=== PATIENT | male | born 1945 | race African-American/Black ===

== ENCOUNTER 2017-07-19 10:57 | Emergency (ER) | payer BC, OTHER ==
[~2017-07-19] VITALS: Ht 182.9 cm; Wt 100.2 kg
[~2017-07-19 10:57] MED LIST: AMITRIPTYLINE H25 M2 PO; CLOBETASOL EMOL15 GM TOP; HYDROCODON-ACE1 EAC7 PO; LIDEX60 G1 TOP; LIPITOR80 MG PO; LISINOPRIL-HCT1 EAC2 PO; NEURONTIN800 MG PO; TOPROL XL25 MG PO; VITAMIN D 5050000 I1 PO; VITAMIN D1000 UNI1 PO; XARELTO15 MG PO; ZESTORETIC 20-1 EAC3 PO
[2017-07-19 12:30] LABS: ABSOLUTE NEUTROPHILS 4.2 thou/uL (1.4-8.2); BASOPHILS 0.5 % (0.0-2.0); EOSINOPHILS 0.9 % (0.0-3.0); HEMATOCRIT 41.6 % (42.0-52.0); HEMOGLOBIN 14.1 gm/dL (14.0-18.0); LYMPHOCYTES 27.1 % (24.0-44.0); MCH 28.1 pg (26.0-34.0); MCHC 33.8 g/dL (28.0-37.0); MCV 83.1 fL (80.0-100.0); MONOCYTES 8.8 % (1.0-8.0); PLATELET COUNT 199 thou/uL (150-400); POLYS 62.7 % (36.0-66.0); RDW 14.4 % (10.5-14.5); WBC 6.7 thou/uL (4.0-11.0)
[2017-07-19 12:42] LABS: CALCIUM 9.7 mg/dL (8.5-10.1); CREATININE 0.8 mg/dL (0.7-1.3); POTASSIUM 4.4 mmol/L (3.5-5.1)
[2017-07-19 12:43] LABS: MANUAL DIFF NO
[2017-07-19 12:50] LABS: ALBUMIN 3.8 g/dL (3.4-5.0); TOTAL BILIRUBIN 0.5 mg/dL (<0.1-1.0); TOTAL PROTEIN 8.1 g/dL (6.4-8.2)
[2017-07-19] MEDS ORDERED: MIRALAX17 GM PO (14:30)
[2017-07-19 14:37] LABS: URINE BILIRUBIN NEGATIVE (Negative); URINE BLOOD NEGATIVE (Negative); URINE COLOR YELLOW; URINE GLUCOSE-RANDOM* NEGATIVE (Negative); URINE KETONES NEGATIVE (Negative); URINE NITRITE NEGATIVE (Negative); URINE PROTEIN (DIPSTICK) NEGATIVE (Negative); URINE SPECIFIC GRAVITY <= 1.005 (1.003-1.035)
[2017-07-19] MEDS ORDERED: TRAMADOL 50 MG50 MG PO (14:53)
[2017-07-19 14:59] VITALS: BP 142/84
== END 2017-07-19 15:27 | disposition home or self-care (01) ==
LOC: ER 10:57
PROVIDERS: Nurse Practitioner Family
DX: K59.00 Constipation, unspecified (principal); I48.91 Unspecified atrial fibrillation; I10 Essential (primary) hypertension; Z87.891 Personal history of nicotine dependence

== ENCOUNTER 2019-03-27 05:29 | Inpatient (IN) | payer BC, OTHER ==
[2019-03-20 11:25] LABS: INR 1.2; PROTIME 12.7 Seconds (9.3-11.4)
[~2019-03-27] VITALS: Ht 177.8 cm; Wt 113.9 kg
--- NOTE | ~2019-03-27 | O ---
[facility] [place] [address] OPERATIVE REPORT Name: RAE LOZANO JR Room #: 150-1 ADM IN M.R.#: [id number] Admission: 03/27/19 ������������������ Attend Phys: Nathen Pedro MD Discharge: ������������������ Date of : 45 Report #: [id number] THIS REPORT FOR: //name// CC: REUBEN RAMOS Physician staff Nathen Pedro DATE OF SERVICE: 03/27/2019 PREOPERATIVE DIAGNOSIS: Right hip stage 4 avascular necrosis. POSTOPERATIVE DIAGNOSIS: Right hip stage 4 avascular necrosis. PROCEDURE: Right total hip arthroplasty. SURGEON: Nathen Pedro MD BREWMASTER: Ivelisse Nielson PA-C. INDICATIONS FOR BREWMASTER: Throughout the case, extensive retraction and manipulation of the hip including dislocation and reduction was required. This was afforded to me by my certified surgical first assistant. ANESTHESIA: General endotracheal. IMPLANTS: [employer] size 12 high offset Synergy press fit stem, a size 58 R3 acetabular cup with one acetabular screw and a size 48+8 cobalt chrome head. ESTIMATED BLOOD LOSS: 150 mL. COMPLICATIONS: None. SPECIMENS: None. CONDITION UPON LEAVING THE OPERATING ROOM: Stable. INDICATIONS FOR PROCEDURE: The patient is a 73-year-old gentleman with severe right hip stage 4 avascular necrosis. He had failed conservative treatment for this and after discussion with him, he elected for right total hip arthroplasty. DESCRIPTION OF PROCEDURE: Risks, benefits, alternatives, complications were discussed in detail with the patient including but not limited to risk of anesthesia, risk of damage to nerves, arteries and blood vessels, risk for infection and bleeding, risk for leg length discrepancy, instability and need for reoperation. Informed consent was obtained from the patient. The right hip [facility] [address] [place] [address] OPERATIVE REPORT Name: RAE LOZANO Room #: 150-1 ADM IN M.R.#: [id number] Admission: 03/27/19 ������������������ Attend Phys: Nathen Pedro MD Discharge: ������������������ Date of : 45 Report #: [id number] was appropriately marked in the preoperative holding area. IV Ancef was given for preoperative antibiotics. He was brought to the operating room and placed in supine position on operating room table. General endotracheal anesthesia was induced without complication. He was then placed in the left lateral decubitus position with the right hip uppermost. Right hip and lower extremity were prepped and draped in normal sterile fashion. Timeout was performed properly identifying the patient and procedure as well as the instrumentation and implants. All in the operating room were in agreement. Standard posterior approach to the hip was made with a 10 blade through the skin. Dissection was taken down to the fascia with Bovie cautery. Sánchez elevator was used to clean the fascia. A fresh 10 blade was used to make a fascial incision. This was taken proximally and distally with curved Ramos scissor. Charnley retractor was placed. The trochanteric bursa was taken down with Bovie cautery. Piriformis tendon was identified, tagged and taken down with Bovie cautery. Short external rotators were also taken down with Bovie cautery. Capsulotomy was made and capsule ends were tagged for later repair. The hip was dislocated and there was severe stage 4 avascular necrosis of the femoral head with complete collapse of the entire femoral head. Femoral neck cut was made 1 cm proximal to lesser trochanter based on preoperative templating and the femoral head was removed. The deep acetabular retractors were placed. The labrum was removed sharply. see the anterior tightness of the capsule and the anterior capsule was released off the acetabulum with the Bovie cautery. After adequate exposure to the acetabulum, this was reamed to a size 58, at which point, there was excellent bleeding cancellous bone. A size 57 trial cup was placed, found to have a good fit. A final size 58 R3 acetabular cup was placed and seated. One acetabular screw was placed for backup fixation. Polyethylene liner for a 40 head was placed. After this, attention was turned to the femur. This was reamed and broached up to a size 12, at which point, the size 12 broach was stable. This was trialed with a high offset neck and a 40+0 head. Hip was reduced, taken through range of motion, found to be stable, found to be short on the right compared to left and it was felt we could makeup for this with the final implant. After this, the hip was dislocated and the broach was removed. A final size 12 high offset Synergy press fit stem was placed and seated. This was then trialed with a +4 and a +8 head. The +8 head had better leg length and stability. A final size 40+8 cobalt chrome head was placed. Hip was reduced, taken through range of motion, found to be stable, found to have equal leg lengths. After this, the hip was thoroughly irrigated with normal saline. A gram of vancomycin was placed deep in the joint. Capsule was unable to be repaired secondary to significant shortening of the capsule secondary to his contracture. The piriformis was repaired with 0 FiberWire. Fascia was closed with 0 Vicryl, skin was closed with 2-0 Vicryl and 3-0 Monocryl. [facility] [address] [place] [address] OPERATIVE REPORT Name: RAE LOZANO Room #: 150-1 [facility] IN .R.#: [id number] Admission: 03/27/19 ������������������ Attend Phys: Nathen Pedro MD Discharge: ������������������ Date of : 45 Report #: [id number] a LEONARDA dressing was applied. The patient tolerated this procedure well and went to recovery room under care of anesthesia postoperatively. ��������������������������������������������� ���������������������������������������� By: ��������������������������������������������� [id number] Nathen Pedro MD /nt
[~2019-03-27 05:29] MED LIST changes: +MIRALAX17 GM PO; +TRAMADOL 50 MG50 MG PO
[2019-03-27 13:08] VITALS: BP 135/84
[2019-03-27 18:30] VITALS: BP 142/87
--- NOTE | 2019-03-27 18:51 | NUR ---
ASSUMED CARE AT 0700, SHIFT ASSESSMENT DONE, MEDS GIVEN, HR AT 120. PATIENT INDICATED PAST HISTORYT OF AFIB WITH ABLATION. REPROTED PAIN AT 01/15. LEONARDA DRESSING TO RIGHT KNEE C/D/I. WILL CONTINUE TO ASSESS AND ASSIST WITH ADLs NEEDED
[2019-03-27 22:27] VITALS: BP 105/66
[2019-03-28 01:29] VITALS: BP 119/75
[2019-03-28 03:50] VITALS: BP 110/71
--- NOTE | 2019-03-28 04:00 | NUR ---
Assumed pt care at 1900,A/OX4. C/o pain to Right hip 04/17,medicated with Percocet with relief reported. Pt has a low grade temp 99.8, medicated with Tylenol with some relief noted 99.2. LEONARDA dsg on Right hip C/D/I,ice packs provided as needed. Voiding per urinal with no difficulties reported. IVF fluids infusing via RAC. SCD's/tedhose on. Resting quietly at this time with no distress noted. Will continue to monitor pt.
[2019-03-28 05:58] LABS: HEMATOCRIT 33.8 % (42.0-52.0); HEMOGLOBIN 11.3 gm/dL (14.0-18.0); MCH 27.5 pg (26.0-34.0); MCHC 33.4 g/dL (28.0-37.0); MCV 82.4 fL (80.0-100.0); RBC 4.1 mil/uL (4.50-6.00); WBC 17.3 thou/uL (4.0-11.0)
--- NOTE | 2019-03-28 12:50 | NUR ---
INITIAL ASSESSMENT: Pt evaluated for d/c planning needs. Reviewed chart and spoke with nurse and pt. Pt is alert and oriented. Pt lives in house with spouse and was independent with ADL's prior to admission to the hospital. Pt has cane at home and had home health in the past, but does not recall name of company. Pt wants to have home health on d/c from the hospital for a few weeks and then will transition to outpatient PT. [facility] is able to deliver walker to pt prior to d/c. Pt given choices and wants to use [facility]. Choice letter signed and placed on chart. No other needs identified.
[2019-03-28 12:56] VITALS: BP 108/70
--- NOTE | 2019-03-28 12:58 | NUR ---
ASSUMED CARE AT 0700, SHIFT ASSESSMENT DONE, MEDS GIVEN, VSS. REPORTED PAIN, PRN PAIN MEDS GIVEN. WORKED WITH PHYSICAL AND OCCUPATIONAL THERAPHY. DISCHARGE PENDING, CAN DISCHARGE IF PHYSICAL THERAPHY CLEARS HIM FOR DISCHARGE. WILL CONTINUE TO ASSESS AND ASSIST WITH ADLs NEEDED.
[2019-03-28 14:00] VITALS: BP 108/70
--- NOTE | 2019-03-28 14:12 | NUR ---
DISCRGE ORDER RECEIVED, PERIPHERAL IV WAS TAKEN OUT. DISCHARGE PAPER WORK AND SCRIPT GIVEN. PATIENT LEFT WITH VOLUNTEER TRANSPORTATION.
== END 2019-03-28 14:31 | disposition home health service (06) | DRG 470 ==
LOC: PRE → 4E 05:52 → TBA 05:52 → PRE 10:19 → 4E 17:35 → ENTRNSPT 03-28 14:12 → 4E 03-28 14:31
PROVIDERS: ADMIT Orthopaedic Surgery
PROC: 0SR901A Replacement of Right Hip Joint with Metal Synthetic Substitute, Uncemented, Open Approach (ICD-10-PCS; principal; 2019-03-27)
DX: M87.851 Other osteonecrosis, right femur (principal)
CPT/HCPCS: 10783; 50010; 50101; 50382; 50414; 53000; 53078; 53367; 54118; 56524; 56527; 56528; 56530; 57095; 57103; 62110; 62900; 70005

== ENCOUNTER 2019-11-30 11:25 | Inpatient (IN) | payer OTHER ==
[~2019-11-30] VITALS: Ht 180.3 cm; Wt 122.5 kg
[2019-11-30 11:28] VITALS: BP 135/88
[2019-11-30 12:24] LABS: ABSOLUTE NEUTROPHILS 3.8 thou/uL (1.4-8.2); EOSINOPHILS 1.3 % (0.0-3.0); HEMATOCRIT 47.3 % (42.0-52.0); HEMOGLOBIN 15.4 gm/dL (14.0-18.0); LYMPHOCYTES 32.9 % (24.0-44.0); MCH 26.7 pg (26.0-34.0); MCHC 32.5 g/dL (28.0-37.0); PLATELET COUNT 204 thou/uL (150-400); POLYS 59.8 % (36.0-66.0); RBC 5.77 mil/uL (4.50-6.00); RDW 15.9 % (10.5-14.5); WBC 6.4 thou/uL (4.0-11.0)
[2019-11-30 12:39] LABS: ANION GAP 8 mmol/L (7-16); BUN 10 mg/dL (7-18); CALCIUM 9.7 mg/dL (8.5-10.1); CHLORIDE 100 mmol/L (98-107); CO2 29 mmol/L (21-32); CREATININE 0.9 mg/dL (0.7-1.3); GLUCOSE 127 mg/dL (74-106); POTASSIUM 4.5 mmol/L (3.5-5.1); SODIUM 137 mmol/L (136-145)
[2019-11-30 12:47] LABS: ALBUMIN 4.1 g/dL (3.4-5.0); SGOT 29 U/L (15-37); SGPT 36 U/L (30-65); TOTAL BILIRUBIN 0.7 mg/dL (<0.1-1.0); TOTAL PROTEIN 8.7 g/dL (6.4-8.2); TROPONIN-I <0.06 ng/mL (<0.06)
[2019-11-30 13:57] VITALS: BP 127/69
[2019-11-30 17:29] VITALS: BP 144/81
--- NOTE | 2019-11-30 17:44 | NUR ---
REC PT APPROX 1745, HE'S VERBALLY UPSET ABOUT BEING HERE, EXPLAINED ALL HE WANTED WAS A WALKER AND TO GO TO THE GYM, AMB STEADY, SLOWLY. SPOUSE ACCOMPANIES, SEE SEPARATE INTERVENTIONS FOR ASSESSMENTS. CARDIAC MONITORED. HX ABLATION AND RIGHT GREAT TOE REMOVAL. ENCOURAGED PT AND SPOUSE TO USE CALL LIGHT FOR ANY NEEDS. CALLED DIETARY TO REC MEAL
[2019-11-30 17:45] VITALS: BP 145/74
[2019-11-30 19:40] VITALS: BP 146/77
[2019-12-01 04:53] VITALS: BP 141/78
--- NOTE | 2019-12-01 07:39 | NUR ---
Pt slept well through noc with some complaints of general chronic aches/pains with at the bedside. Denies any chest pain, SOA or other new symptoms. LE US noted to be negative, SCDs in place. Discussed POC and progressing well towards discharge goals.
[2019-12-01 09:15] VITALS: BP 155/101; BP 156/102
--- NOTE | 2019-12-01 09:53 | 2DMMODE ---
[facility] [place] [address] 2 D/M-MODE ECHOCARDIOGRAM Name: RAE LOZANO Room #: 210-P ADM IN M.R.#: [id number] Admission: 11/30/19 Attend Phys: Abraham Cooley Discharge: Date of : 45 Report #: [id number] THIS REPORT FOR: //name// APPROVED REPORT Study performed: 12/01/2019 09:19:54 EXAM: Comprehensive 2D, Doppler, and color-flow Echocardiogram Patient Location: Echo lab Room #: 210 Status: routine BSA: 2.40 HR: 95 bpm BP: 141/78 mmHg Rhythm: NSR Other Information Study Quality: Adequate Technically limited study due to morbid obesity. Indications Pulmonary Embolism Hx: Afib, HTN, HLP. 2D Dimensions RVDd: 32.15 mm IVSd: 11.35 (7-11mm) LVOT Diam: 22.79 (18-24mm) LVDd: 44.03 mm PWd: 11.25 (7-11mm) Ascending Ao: 38.43 (22-36mm) LVDs: 32.07 (25-40mm) Aortic Root: 35.16 mm Volumes Left Atrial Volume (Systole) Single Plane 4CH: 52.09 mL Single Plane 2CH: 65.20 mL LA ESV Index: 26.00 mL/m2 Aortic Valve AoV Peak Brayan.: 1.29 m/s AO Peak Gr.: 6.62 mmHg LVOT Max P.62 mmHg LVOT Max V: 0.95 m/s BELEN Vmax: 3.02 cm2 Mitral Valve [facility] [address] [place] [address] 2 D/M-MODE ECHOCARDIOGRAM Name: RAE LOZANO Room #: 210-P [facility] [place] [facility].#: [id number] Admission: 11/30/19 Attend Phys: Abraham Cooley Discharge: Date of : 45 Report #: [id number] E/A Ratio: 0.7 MV Decel. Time: 184.95 ms MV E Max Brayan.: 0.62 m/s MV A Brayan.: 0.92 m/s MV PHT: 53.63 ms IVRT: 85.35 ms Pulmonary Valve PV Peak Brayan.: 1.12 m/s PV Peak Gr.: 4.98 mmHg Tricuspid Valve RAP Estimate: 5.00 mmHg Left Ventricle The left ventricle is normal size. There is normal LV segmental wall motion. There is normal left ventricular wall thickness. Left ventricular systolic function is normal. LVEF is 60-65%. Mild diastolic dysfunction is present (impaired relaxation pattern). Right Ventricle Right ventricle is not well visualized but appears grossly normal. Atria The left atrium size is normal. The right atrium size is normal. Aortic Valve The aortic valve is normal in structure. No aortic regurgitation is present. There is no aortic valvular stenosis. Mitral Valve The mitral valve is normal in structure. There is no mitral valve regurgitation noted. No evidence of mitral valve stenosis. Tricuspid Valve Tricuspid valve is not well visualized. There is no tricuspid valve regurgitation noted. Unable to assess PA pressure. Pulmonic Valve The pulmonary valve is normal in structure. Mild pulmonic regurgitation. Great Vessels The aortic root is normal in size. The ascending aorta is borderline [facility] [address] [place] [address] 2 D/M-MODE ECHOCARDIOGRAM Name: RAE LOZANO JR Room #: 210-P [facility] [place] .R.#: [id number] Admission: 11/30/19 Attend Phys: Abraham Cooley Discharge: Date of : 45 Report #: [id number] dilated. IVC is normal in size and collapses >50% with inspiration. Pericardium There is no pericardial effusion. <Conclusion> The left ventricle is normal size. LVEF is 60-65%. Right ventricle is not well visualized but appears grossly normal. The aortic valve is normal in structure. The mitral valve is normal in structure. Tricuspid valve is not well visualized. There is no tricuspid valve regurgitation noted. Unable to assess PA pressure. The ascending aorta is borderline dilated. There is no pericardial effusion. <ELECTRONICALLY SIGNED> By: Francis Cortes MD 12/01/19 [id number] Francis Cortes MD /INF
[2019-12-01] MEDS ORDERED: ELIQUIS5 M1 PO (10:51)
[2019-12-01 11:42] VITALS: BP 156/102
[2019-12-01 12:01] VITALS: BP 152/98
--- NOTE | 2019-12-01 12:20 | NUR ---
ASSUMED CARE OF PT AT SHIFT CHANGE. ASSESSMENT CHARTED. MEDS GIVEN PER JAN. VSS. PT A&OX4. NO C/P PAIN OR SOA. DISCHARGE ORDERS AND INSTRUCTIONS COMPLETE. IV AND TELE DC'D. TRANSPORTED VIA VOLUNTEER WHEELCHAIR WITH TO WAITING CAR.
[2019-12-01 12:22] VITALS: BP 156/102
--- NOTE | 2019-12-01 15:19 | NUR ---
Pt dc'd home today with no cm interventions.Outpt f/u anticipated. Consult rec'd regarding eliquis script. Pt has health plan with script coverage. Eliquis coupons/30 day trial info provided. Case not opened.
== END 2019-12-01 12:41 | disposition home or self-care (01) | DRG 176 ==
LOC: ER 11:25 → 2N 13:51 → EROBS 13:51 → 2N 17:31 → ENTRNSPT 12-01 12:09 → EDTRNSPTSTS 12-01 12:32 → 2N 12-01 12:41
PROVIDERS: Emergency Medicine; ADMIT Hospitalist
DX: I26.99 Other pulmonary embolism without acute cor pulmonale (principal); I48.91 Unspecified atrial fibrillation; E78.5 Hyperlipidemia, unspecified; Z96.652 Presence of left artificial knee joint; E66.9 Obesity, unspecified; K21.9 Gastro-esophageal reflux disease without esophagitis; I10 Essential (primary) hypertension; Z79.899 Other long term (current) drug therapy; Z87.891 Personal history of nicotine dependence; Z72.89 Other problems related to lifestyle; Z68.37 Body mass index [BMI] 37.0-37.9, adult
CPT/HCPCS: 10081

== ENCOUNTER → 2020-09-03 | Outpatient (CLI) | payer OTHER ==
[~2020-09-03] MED LIST changes: +ELIQUIS5 M1 PO
== END ==
LOC: SJCVC 11:00
PROVIDERS: ATTEND Internal Medicine Cardiovascular Disease
DX: I10 Essential (primary) hypertension (principal); I48.92 Unspecified atrial flutter; E78.00 Pure hypercholesterolemia, unspecified; Z79.899 Other long term (current) drug therapy; Z87.891 Personal history of nicotine dependence

== ENCOUNTER → 2021-09-17 | Outpatient (CLI) | payer OTHER | LOC: SJCVCIMAG 12:46 | PROVIDERS: ATTEND Internal Medicine Cardiovascular Disease | DX: I07.1 Rheumatic tricuspid insufficiency (principal); I49.1 Atrial premature depolarization; I48.92 Unspecified atrial flutter; I10 Essential (primary) hypertension; E78.00 Pure hypercholesterolemia, unspecified; E78.5 Hyperlipidemia, unspecified; Z87.891 Personal history of nicotine dependence; Z79.82 Long term (current) use of aspirin; Z79.899 Other long term (current) drug therapy; Z72.89 Other problems related to lifestyle ==